=== PATIENT | female | born 1970 | race Two or more races ===

== ENCOUNTER 2018-05-22 10:02 | Day surgery (SDC) | payer OTHER ==
[~2018-05-22] VITALS: Ht 162.6 cm; Wt 60.7 kg
[~2018-05-22 10:02] MED LIST: MULT-516 PO
[2018-05-22 10:37] VITALS: BP 129/90
[2018-05-22] MEDS ORDERED: CEFAZOLIN PMX 1GM/50ML 50 ML IV ONE (11:00)
[2018-05-22] MEDS ORDERED: SODIUM CHLORIDE 0.9% 1,000 ML IV SCH (11:00)
[2018-05-22] MEDS ORDERED: LIDOCAINE/PF 1%, 30ML ONE (12:05)
[2018-05-22] MEDS ORDERED: FENTANYL PF 100 MCG/2ML ONE (12:18)
[2018-05-22] MEDS ORDERED: NALOXONE 1 MG/ML, 2ML ONE (12:19)
[2018-05-22] MEDS ORDERED: FLUMAZENIL 0.1 MG/1 ML, 5ML ONE (12:19)
[2018-05-22] MEDS ORDERED: MIDAZOLAM 1 MG/ML, 5ML ONE (12:19)
== END 2018-05-22 15:20 | disposition home or self-care (01) ==
LOC: OUT 10:02
PROVIDERS: ATTEND Surgery
DX: Z45.2 Encounter for adjustment and management of vascular access device (principal); C50.911 Malignant neoplasm of unspecified site of right female breast; Z98.890 Other specified postprocedural states
CPT/HCPCS: 36561; 76937; 77001; 99156; 99157; C1788; C1894; J0690; J1642; J2250; J3010; J3490; J7030; J2310

== ENCOUNTER → 2018-06-14 | Outpatient (CLI) | payer OTHER ==
[~2018-06-14] MED LIST changes: +OMNIPAQUE 350 MG/ML, 100ML BOTTLE ONE
== END | disposition home or self-care (01) ==
LOC: PETCFH 07:44
PROVIDERS: ATTEND Specialist
DX: R93.89 Abnormal findings on diagnostic imaging of other specified body structures (principal); C50.411 Malignant neoplasm of upper-outer quadrant of right female breast
CPT/HCPCS: 71260; 74177; 78306; A9503; Q9967

== ENCOUNTER 2019-02-03 15:51 | Outpatient (CLI) | payer BC, OTHER | END 2019-02-03 23:59 | disposition home or self-care (01) | LOC: CFH 15:51 | PROVIDERS: ATTEND Surgery | DX: M79.601 Pain in right arm (principal) ==